=== PATIENT | female | born 1955 | race Caucasian/White ===

== ENCOUNTER → 2017-08-27 | Outpatient (CLI) | payer BC | END | disposition home or self-care (01) | LOC: MAMMO 10:15 | DX: Z12.31 Encounter for screening mammogram for malignant neoplasm of breast (principal) ==

== ENCOUNTER → 2018-09-15 | Outpatient (CLI) | payer BC | END | disposition home or self-care (01) | LOC: RAD 10:39 | DX: J18.9 Pneumonia, unspecified organism (principal); Z90.49 Acquired absence of other specified parts of digestive tract ==

== ENCOUNTER → 2018-11-16 | Outpatient (CLI) | payer BC | END | disposition home or self-care (01) | LOC: RAD 17:47 | DX: J43.9 Emphysema, unspecified (principal) ==

== ENCOUNTER → 2019-05-27 | Outpatient (CLI) | payer BC, OTHER | END | disposition home or self-care (01) | LOC: RAD 10:48 → MAMMO 13:00 | DX: Z13.820 Encounter for screening for osteoporosis (principal); M81.0 Age-related osteoporosis without current pathological fracture; N63.10 Unspecified lump in the right breast, unspecified quadrant; N63.20 Unspecified lump in the left breast, unspecified quadrant; E55.9 Vitamin D deficiency, unspecified; Z78.0 Asymptomatic menopausal state ==

== ENCOUNTER → 2019-06-30 | Day surgery (SDC) | payer BC, OTHER ==
[~2019-06-30] VITALS: Ht 154.9 cm; Wt 51.3 kg
[~2019-06-30] MED LIST: CALCITONIN-SAL3.7 ML NAS; CITALOPRAM HYDR10 MG PO; VITAMIN D400 I1 PO; [UNRECOGNIZED DRUG - OTHER] PO
[2019-06-30 12:13] VITALS: BP 103/61
[2019-06-30 12:28] VITALS: BP 130/59
[2019-06-30 12:43] VITALS: BP 136/60
== END | disposition home or self-care (01) ==
LOC: SDC 06-28 11:00
DX: Z12.11 Encounter for screening for malignant neoplasm of colon (principal); D12.8 Benign neoplasm of rectum; J45.909 Unspecified asthma, uncomplicated; F32.9 Major depressive disorder, single episode, unspecified; J43.9 Emphysema, unspecified; Z90.49 Acquired absence of other specified parts of digestive tract